=== PATIENT | male | born 1980 | race Caucasian/White ===

== ENCOUNTER 2018-05-04 07:27 | Emergency (ER) | payer BC, SELFPAY ==
--- NOTE | 2018-05-04 07:31 | EKG12_ITS ---
Test Reason : CP Blood Pressure : / mmHG Vent. Rate : 097 BPM Atrial Rate : 097 BPM P-R Int : 154 ms QRS Dur : 094 ms QT Int : 364 ms P-R-T Axes : 066 082 023 degrees QTc Int : 462 ms Normal sinus rhythm Normal ECG Confirmed by GITA POWELL, OUMAR ([id number]), sports editor NATHEN MCALLISTER ([id number]) on 05/10/2018 6:15:22 PM Referred By: SIERRA Confirmed By:OUMAR PELAYO MD
--- NOTE | 2018-05-04 07:42 | DT_ITS ---
This patient was seen during an EMR downtime May 01, 2018 - May 08, 2018. This patient may have a combination of paper and electronic documentation or all paper documentation. All documentation is viewable within the e-chart portion of [employer] for each patient visit.
--- NOTE | 2018-05-04 07:55 | RAD_ITS ---
STUDY: X-RAY CHEST REASON FOR EXAM: Male, 38 years old. Left-sided chest pain intermittent for one month TECHNIQUE: PA and lateral views of the chest. COMPARISON: None. FINDINGS: The lungs are clear and expanded. There is no demonstrated pleural abnormality. Normal size heart. Normal mediastinum and ailin. Normal visualized pulmonary arteries. Normal visualized aortic arch and descending thoracic aorta. There are diffuse degenerative changes of the visualized thoracic spine. Normal visualized ribs, clavicles, and shoulders. There is no demonstrated abnormality of the visualized soft tissue structures of the upper abdomen. RAD/Chest PA and Lateral IMPRESSION: Degenerative changes, as described above. No demonstrated acute cardiopulmonary process. Electronically Signed: Mimi Cohen MD at 13:14 EDT Tel , Service support ,
[2018-05-06 12:48] LABS: Anion Gap 8 (5-15); BUN 15 mg/dL (7-18); BUN/Creat Ratio 15.3 RATIO (10-20); Calcium,Total 8.9 mg/dL (8.5-10.1); Chloride 102 mmol/L (98-107); Creatinine, Serum 0.98 mg/dL (0.70-1.30); EST Glomerular Filtration Rate 91 mL/min (>60); Est Glom Filt Rate - Afr Amer 110 mL/min (>60); Glucose 194 mg/dL (74-106); Potassium 3.6 mmol/L (3.5-5.1); Sodium Level 138 mmol/L (136-145)
[2018-05-07 10:57] LABS: Absolute Neutrophil Count 4.8 X10^3/uL (2.0-7.7); Basophil% 0.1 % (0-1); Hematocrit 52.8 % (40-54); Hemoglobin 17.8 g/dl (13.0-16.5); Lymphocyte % 29.5 % (19-41); Mean Corp Hgb Conc 33.7 g/gl (32-36); Mean Corpuscular Hgb 29.3 pg (27.0-32.0); Mean Corpuscular Volume 86.8 fL (80-94); Mean Platelet Vol. 10.3 fl (6.2-12.0); Monocyte% 8.2 % (0-10); Neutrophil # 4.84 X10^3/uL (2.7-7.7); Neutrophil % 60.1 % (47-70); POSITIVE COUNT NO; POSITIVE DIFFERENTIAL NO; POSITIVE MORPHOLOGY NO; Platelet Count 240 K/mm3 (150-450); RBC Distribution Width CV 12.1 % (11.6-14.6); RBC Distribution Width SD 38.3 fl (35.1-43.9); Red Blood Count 6.08 M/mm3 (4.6-6.2); White Blood Count 8.1 K/mm3 (4.4-11.0)
[2018-05-07 10:58] LABS: Absolute Lymphocyte Count 2.38 X10^3/ul (0.83-4.51); Basophil# 0.01 X10^3/uL; Eosinophil# 0.16 X10^3/uL; Lymphocyte # 2.38 X10^3/ul (4.0); Monocyte# 0.66 X10^3/uL
== END 2018-05-04 09:30 | disposition home or self-care (01) ==
PROVIDERS: Emergency Provider Emergency Medicine; Family Provider Family Medicine
DX: R07.89 Other chest pain (principal); R00.2 Palpitations; F17.290 Nicotine dependence, other tobacco product, uncomplicated
CPT/HCPCS: 71046; 80048; 84484; 85025; 93005; 99284; A4216

== ENCOUNTER 2021-07-29 10:49 | Emergency (ER) | payer OTHER, SELFPAY ==
[2021-07-29 10:52] VITALS: BP 149/103; PULSE 99; RESP 16; TEMP 36.1; O2SAT 96; BMI 40.3
--- NOTE | 2021-07-29 11:08 | EDS_ITS ---
HPI History of Present Illness Chief Complaint: Back Informant: patient Onset/Context/Timing Onset: Weeks (2 weeks, worse today) Injury: twisting Current Severity: Moderate Maximum Severity: Severe Associated Symptoms Associated Symptoms: Negative for Tingling, Radiation to Right Leg, Radiation to Left Leg, Urinary Retention, Urinary Incontinence, Constipation and Fecal Incontinence Narrative Narrative: Patient presents secondary to low back pain. He has intermittent problems with his back and tends to use ice packs and a TENS unit. 2 weeks ago he pulled his back when he was trying to the neighbors dog out of his yard. He states he used his ice pack and TENS unit actually felt pretty good. A week later he twisted wrong and felt another pulling sensation. This morning he woke up with increasing severe spasm in his low back. He states it took him 2 hours to get from bed to the bathroom this morning. He tried ibuprofen without improvement. He denies pain radiating down his leg. No problems with bowel or bladder control. There was no trauma or direct injury to his back. No fever or chills. [facility] Medical History Back pain Diabetes GERD (gastroesophageal reflux disease) Hypertension Home Medications cetirizine [Zyrtec] 10 mg PO DAILY 07/29/21 [History Last Taken Unknown] cyclobenzaprine 10 mg PO TID PRN #14 tab 07/29/21 [Rx Last Taken Unknown] hydrocodone-acetaminophen 1 tab PO Q6H PRN 3 Days #10 tab 07/29/21 [Rx Last Taken Unknown] lisinopril-hydrochlorothiazide 1 tab PO DAILY 07/29/21 [History Last Taken Unknown] metformin 500 mg PO BID 07/29/21 [History Last Taken Unknown] Allergy/AdvReac Type Severity Reaction Status Date / Time No Known Allergies Allergy Verified 07/29/21 10:50 Social History Smoking Status: Former smoker ROS ROS ED Constitutional Constitutional ED: Denies chills or fever(s) Eyes Eyes: Denies change in vision ENT ENT ED: Denies sore throat Cardiovascular Cardiovascular: Denies chest pain Respiratory/Chest Respiratory/Chest: Denies cough or dyspnea Gastrointestinal Gastrointestinal: Denies abdominal pain, diarrhea, nausea or vomiting Genitourinary Genitourinary ED: Denies dysuria Musculoskeletal Musculoskeletal: Reports back pain Integumentary Denies rash Neurologic Neurologic: Denies headache(s), paresthesias or weakness Allergic/Immunologic Allergic/Immunologic ED: Denies urticaria EXAM Physical Exam Const Vital Signs: 07/29/21 10:52 Temperature 97.0 F L Temperature Source Temporal Pulse Rate 99 Respiratory Rate 16 Blood Pressure 149/103 H Blood Pressure Mean 118 Pulse Ox 96 Oxygen Delivery Method Room Air Positive well nourished and well developed General Appearance ED: well developed HEENT Reports normocephalic and head/scalp atraumatic Eyes PERRL and EOMs intact bilaterally Neck supple Chest Wall inspection of chest normal and palpation of chest normal Resp normal respiratory effort and clear to auscultation bilaterally Cardio regular rate and regular rhythm GI normal to inspection, nondistended, normoactive bowel sounds Palpation: soft Back/Spine no CVA tenderness and normal to inspection Back/Spine Narrative: No midline thoracic or lumbar tenderness. Reproducible tenderness in the left lumbar paraspinal muscles. Extremity normal to inspection Neuro oriented x3 and no sensory deficits noted Neuro Narrative: No neuro deficits noted. Sensorium / Orientation: alert Psych mental status grossly normal Skin no rashes or lesions noted MDM MDM MDM Narrative Medical decision making narrative: Patient had no trauma or direct injury to his back. I do not feel imaging is warranted. This was discussed with the patient and he agrees. Patient will continue anti-inflammatories at home. We will add [place] and Flexeril, first doses here. Return instructions are provided. Discharge Plan Triage Chief Complaint: Back ED Provider: Esperanza Mosquera Dx/Rx/DC Orders Clinical Impression: Lumbar paraspinal muscle spasm Instructions: ED Back Spasm, No Trauma, ED Back Sprain/Strain Prescriptions: New cyclobenzaprine 10 mg tablet 10 mg PO TID PRN (Reason: muscle spasm) Qty: 14 RF: 0 hydrocodone-acetaminophen 5-325 mg tablet 1 tab PO Q6H PRN (Reason: pain) 3 Days Qty: 10 RF: 0 No Action metformin 500 mg Tablet 500 mg PO BID RF: 0 cetirizine [Zyrtec] 10 mg Tablet 10 mg PO DAILY RF: 0 lisinopril-hydrochlorothiazide 10-12.5 mg Tablet 1 tab PO DAILY RF: 0 Primary Care Provider: Jose Alfredo Venegas Referrals: Jose Alfredo Venegas MD [Primary Care Provider] - 1 Week if not improving Disposition Disposition: Home, Self Care
[2021-07-29] MEDS: cycloBENZAPRine HCl 10 MG Tablet PO (11:14)
[2021-07-29] MEDS: HYDROcodone Bitartrate/Apap 5/325 Tablet PO (11:15)
[2021-07-29 11:56] VITALS: BP 138/74; PULSE 62; RESP 15; O2SAT 98
== END 2021-07-29 11:57 | disposition home or self-care (01) ==
LOC: ED 11:56
PROVIDERS: Emergency Provider Emergency Medicine; PCP Family Medicine
DX: M62.830 Muscle spasm of back (principal); E11.9 Type 2 diabetes mellitus without complications; I10 Essential (primary) hypertension; Z87.891 Personal history of nicotine dependence; Z79.84 Long term (current) use of oral hypoglycemic drugs
CPT/HCPCS: 99283

== ENCOUNTER 2021-10-16 12:17 | Outpatient (CLI) | payer OTHER, SELFPAY ==
[2021-10-16] MEDS: 0.9% Saline Lock 10 ML Syringe IV (12:47)
[2021-10-16 12:48] VITALS: BP 141/74; PULSE 106; RESP 20; TEMP 37.2; O2SAT 95; BMI 39.5
[2021-10-16 13:22] VITALS: BP 131/67; PULSE 103; RESP 18; TEMP 37.3; O2SAT 95
[2021-10-16 14:17] VITALS: BP 126/75; PULSE 103; RESP 16; TEMP 37.2; O2SAT 95
== END 2021-10-16 14:24 | disposition home or self-care (01) ==
LOC: MS3OUT 12:17 → MS3 12:18
PROVIDERS: PCP Family Medicine; Referring Provider Nurse Practitioner Adult Health; Visit Provider Nurse Practitioner Adult Health
DX: U07.1 COVID-19 (principal)
CPT/HCPCS: J7050; M0245; Q0245; A4216